=== PATIENT | male | born 2000 | race Caucasian/White ===

== ENCOUNTER 2023-03-02 06:08 | Day surgery (SDC) | payer BC ==
[2023-02-28 12:46] VITALS: BMI 24.3
[~2023-03-02 06:08] MED LIST: Ketorolac Tromethamine 30 MG (1 mL) VIAL ONE; diphenhydrAMINE 50 MG/ML VIAL ONE
[2023-03-02] MEDS ORDERED: Papaverine 60 MG/2 ML VIAL ONE (06:41)
[2023-03-02] MEDS ORDERED: Bupivacaine 0.25% HCL 30 ML VIAL ONE (06:41)
[2023-03-02] MEDS ORDERED: Lidocaine 2% PF 5 ML VIAL ONE (07:25)
[2023-03-02] MEDS ORDERED: Dexamethasone 4 mg/ml Vial ONE (07:25)
[2023-03-02] MEDS ORDERED: Midazolam HCl 2 mg/2 ml Vial ONE (07:25)
[2023-03-02] MEDS ORDERED: Fentanyl 250 MCG/5 ML VIAL ONE (07:25)
[2023-03-02] MEDS ORDERED: Ondansetron PF 4 MG/2 ML Vial ONE (07:25)
[2023-03-02] MEDS ORDERED: PROPOFOL 40 ML ONE (07:25)
[2023-03-02] MEDS ORDERED: CEFAZOLIN 1 GM VIAL ONE ×2 (07:31→07:54)
[2023-03-02] MEDS ORDERED: CEFAZOLIN 2 GM VIAL ONE (07:31)
[2023-03-02] MEDS ORDERED: Sodium Chloride 0.9% 100 ML ONE (07:31)
== END 2023-03-02 11:05 | disposition home or self-care (01) ==
LOC: SDC 06:08
PROVIDERS: ATTEND Urology
PROC: 0VBG0ZZ Excision of Left Spermatic Cord, Open Approach (ICD-10-PCS; principal; 2023-03-02)
DX: I86.1 Scrotal varices (principal)
CPT/HCPCS: 88304; J0690; J1100; J1200; J1885; J2001; J2250; J2405; J2440; J2704; J3010; J3490; S0020